=== PATIENT | male | born 1950 | race Caucasian/White ===

== ENCOUNTER 2017-11-30 09:04 | Day surgery (SDC) | payer MEDICARE, OTHER ==
[~2017-11-30] VITALS: Ht 162.6 cm; Wt 113.4 kg
[2017-11-30] MEDS ORDERED: NORVASC 10MG10 MG PO (09:32)
[2017-11-30] MEDS ORDERED: CIALIS5 MG PO (09:33)
[2017-11-30] MEDS ORDERED: LOTENSIN HCT 201 TA1 PO (09:33)
[2017-11-30] MEDS ORDERED: CELEXA 20MG20 MG/TAB PO (09:34)
[2017-11-30] MEDS ORDERED: VALIUM 2MG T2 MG/TAB PO (09:34)
[2017-11-30] MEDS ORDERED: PROSCAR 5MG5 MG PO (09:35)
[2017-11-30] MEDS ORDERED: NORCO 325 MG-51 TAB PO (09:36)
[2017-11-30] MEDS ORDERED: MOBIC15 MG PO (09:36)
[2017-11-30] MEDS ORDERED: TOPROL XL 25MG25 MG PO (09:39)
[2017-11-30] MEDS ORDERED: ANTIVERT 25MG25 MG PO (09:39)
[2017-11-30] MEDS ORDERED: NATURAL POTASS595 MG (09:40)
[2017-11-30] MEDS ORDERED: ASPIRIN 32325 MG/TAB PO (09:40)
[2017-11-30 09:41] VITALS: BP 119/75; PULSE 55; TEMP 98
[2017-11-30 11:55] VITALS: BP 110/66; PULSE 56
[2017-11-30 12:10] VITALS: BP 111/72; PULSE 55
[2017-11-30 12:25] VITALS: BP 118/63; PULSE 51
[2017-11-30 12:40] VITALS: BP 123/76; PULSE 54
== END 2017-11-30 12:52 | disposition home or self-care (01) ==
LOC: SDCO 09:04
DX: Z12.11 Encounter for screening for malignant neoplasm of colon (principal); C19 Malignant neoplasm of rectosigmoid junction; D12.4 Benign neoplasm of descending colon; K64.0 First degree hemorrhoids
CPT/HCPCS: OP; J2704; J7120

== ENCOUNTER → 2017-12-08 | Outpatient (CLI) | payer MEDICARE, OTHER ==
[~2017-12-08] MED LIST: ANTIVERT 25MG25 MG PO; ASPIRIN 32325 MG/TAB PO; CELEXA 20MG20 MG/TAB PO; CIALIS5 MG PO; LOTENSIN HCT 201 TA1 PO; MOBIC15 MG PO; NATURAL POTASS595 MG; NORCO 325 MG-51 TAB PO; NORVASC 10MG10 MG PO; PROSCAR 5MG5 MG PO; TOPROL XL 25MG25 MG PO; VALIUM 2MG T2 MG/TAB PO
== END ==
LOC: COL.RAD 10:41
DX: K63.89 Other specified diseases of intestine (principal)
CPT/HCPCS: Q9967

== ENCOUNTER 2017-12-17 08:50 | Inpatient (IN) | payer MEDICARE, OTHER ==
[~2017-12-17] VITALS: Ht 165.1 cm; Wt 114.2 kg
[2018-01-05] VITALS (12 sets, daily range): BP systolic 99–153; BP diastolic 40–77; PULSE 51–79; TEMP 97.6–98.2
[2018-01-05] MEDS ORDERED: TOPROL XL 50MG50 MG PO (06:26)
[2018-01-06 01:32] VITALS: BP 151/63; PULSE 72; TEMP 98.2
[2018-01-06 05:17] VITALS: BP 131/67; PULSE 74; TEMP 97.6
[2018-01-06 06:53] LABS: HEMATOCRIT 37.5 % (42.0-52.0)
[2018-01-06 06:59] LABS: HEMOGLOBIN 11.8 g/dl (13.5-18.0)
[2018-01-06 07:04] LABS: CALCIUM 8.3 mg/dL (8.4-10.2); CREATININE, serum 1.79 mg/dL (0.66-1.25); POTASSIUM 3.9 mmol/L (3.4-5.0)
[2018-01-06 11:01] VITALS: BP 114/70; PULSE 73; TEMP 98.1
[2018-01-06 13:46] VITALS: BP 110/55; PULSE 72; TEMP 98.1
[2018-01-06 17:36] VITALS: BP 120/70; PULSE 65; TEMP 97.6
[2018-01-06 21:57] VITALS: BP 138/73; PULSE 71; TEMP 98.3
[2018-01-07 05:11] VITALS: BP 144/75; PULSE 62; TEMP 97.9
[2018-01-07 06:40] LABS: CREATININE, serum 1.36 mg/dL (0.66-1.25)
[2018-01-07 09:43] VITALS: BP 123/69; PULSE 60; TEMP 98.3
[2018-01-07 13:36] VITALS: BP 104/81; PULSE 62; TEMP 97.7
== END 2018-01-07 14:15 | disposition home or self-care (01) | DRG 330 ==
LOC: INPTSU 01-05 05:19 → SURG 01-05 05:19
PROVIDERS: Surgery
PROC: 0DTN4ZZ Resection of Sigmoid Colon, Percutaneous Endoscopic Approach (ICD-10-PCS; principal; 2018-01-05 07:30)
PROC: 8E0W4CZ Robotic Assisted Procedure of Trunk Region, Percutaneous Endoscopic Approach (ICD-10-PCS; 2018-01-05 07:30)
DX: C18.7 Malignant neoplasm of sigmoid colon (principal); K62.5 Hemorrhage of anus and rectum; Z68.41 Body mass index [BMI] 40.0-44.9, adult; I10 Essential (primary) hypertension; E66.01 Morbid (severe) obesity due to excess calories
CPT/HCPCS: A4314; J0690; J1100; J1650; J1885; J2405; J2704; J3010; J7120

== ENCOUNTER 2024-05-31 15:23 | Inpatient (IN) | payer MEDICARE, OTHER ==
[~2024-05-31] VITALS: Ht 167.6 cm; Wt 104.7 kg
[~2024-05-31 15:23] MED LIST changes: +TOPROL XL 50MG50 MG PO
[2024-06-12] VITALS (13 sets, daily range): BP systolic 96–156; BP diastolic 62–84; PULSE 54–62; TEMP 96.8–97.8
[2024-06-12] MEDS ORDERED: Meclizine 25 MG TAB PO SCH (05:00)
[2024-06-12] MEDS ORDERED: LR 1,000 ML IV SCH (05:00)
[2024-06-12] MEDS ORDERED: NS 10 ML IV ONE (09:30)
[2024-06-12] MEDS ORDERED: Lidocaine PF 2% (20 MG/ML) 5 ML VIAL ONE (09:30)
[2024-06-12] MEDS ORDERED: fentaNYL 50 MCG/ML 2 ML VIAL ONE ×2 (09:30→16:33)
[2024-06-12] MEDS ORDERED: Midazolam 2 MG/2 ML VIAL ONE (09:30)
[2024-06-12] MEDS ORDERED: dexAMETHasone 10 MG/ML VIAL ONE (09:30)
[2024-06-12] MEDS ORDERED: Tranexamic Acid 1,000 MG/10 ML VIAL ONE (09:33)
[2024-06-12] MEDS ORDERED: NORVASC 5MG5 MG/TAB PO (11:27)
[2024-06-12] MEDS ORDERED: HCTZ 25MG TAB25 MG PO (11:31)
[2024-06-12] MEDS ORDERED: ZYLOPRIM 300MG300 MG PO (11:31)
[2024-06-12] MEDS ORDERED: TOPROL XL100 MG PO (11:32)
[2024-06-12] MEDS ORDERED: CELEBREX 200MG200 MG PO (11:32)
[2024-06-12] MEDS ORDERED: BENICAR40 MG PO (11:33)
[2024-06-12] MEDS ORDERED: PRILOTC PO (11:33)
[2024-06-12] MEDS ORDERED: Sennosides/Docusate 8.6-50 MG TAB PO SCH ×2 (11:48→21:00)
[2024-06-12] MEDS ORDERED: Magnes Hydrox (MOM) 80 MG/ML 30 ML CUP PO SCH (11:49)
[2024-06-12] MEDS ORDERED: Ascorbic Acid 500 MG TAB PO SCH (11:49)
[2024-06-12] MEDS ORDERED: Rivaroxaban 10 MG TAB PO SCH (11:50)
[2024-06-12] MEDS ORDERED: NS 1,000 ML IV SCH (12:00)
[2024-06-12] MEDS ORDERED: Morphine 4 MG/ML VIAL IV PRN (12:00)
[2024-06-12] MEDS ORDERED: Mag/Al Hydrox/Simeth Susp 30 ML CUP PO PRN (12:00)
[2024-06-12] MEDS ORDERED: Acetaminophen 500 MG TAB PO PRN (12:00)
[2024-06-12] MEDS ORDERED: Acetaminophen 500 MG TAB PO SCH (12:00)
[2024-06-12] MEDS ORDERED: oxyCODONE 5 MG TAB PO PRN (12:00)
[2024-06-12] MEDS ORDERED: Bisacodyl 5 MG TAB PO PRN (12:00)
[2024-06-12] MEDS ORDERED: Naloxone 0.4 MG/ML VIAL IV PRN (12:00)
[2024-06-12] MEDS ORDERED: Ketorolac 15 MG/ML VIAL IV SCH (12:00)
[2024-06-12] MEDS ORDERED: Ondansetron 4 MG/2 ML VIAL IV PRN ×2 (12:00→13:30)
[2024-06-12] MEDS ORDERED: Magnes Hydrox (MOM) 80 MG/ML 30 ML CUP PO PRN (12:00)
[2024-06-12] MEDS ORDERED: Ketorolac 30 MG/ML VIAL IM ONE (12:42)
[2024-06-12] MEDS ORDERED: Morphine 4 MG/ML VIAL IM ONE (12:42)
[2024-06-12] MEDS ORDERED: fentaNYL 50 MCG/ML 1 ML SYRINGE/VIAL [PACU/SDC ONLY] IV PRN (13:30)
[2024-06-12] MEDS ORDERED: Morphine 2 MG/1 ML VIAL [PACU/SDC ONLY] IV PRN (13:30)
[2024-06-12] MEDS ORDERED: Meperidine 50 MG/ML 1 ML VIAL IV PRN (13:30)
[2024-06-12] MEDS ORDERED: HYDROmorphone 1 MG/1 ML SYRINGE [PACU/SDC ONLY] IV PRN (13:30)
[2024-06-12] MEDS ORDERED: LR 1,000 ML IV ONE (13:56)
--- NOTE | 2024-06-12 18:30 | NUR ---
pt admitted to room from pacu. pt a&ox4. pt denies pain. dressings to ble are cdi. hemovacs in place. scrotal support applied from prior injury at home before surgery. pt reports having episodes of dizziness at home that his doctor is aware of. pain to left shoulder, ice pack in place. fluids infusing into right hand IV. oriented to room. call light in reach. fall precautions in place. pt tolerating ice chips. no other needs at this time.
[2024-06-12] MEDS ORDERED: ceFAZolin 2 G in Water For Injection,Sterile 20 ML IV SCH (21:30)
[2024-06-13] VITALS (15 sets, daily range): BP systolic 93–122; BP diastolic 54–70; PULSE 57–67; TEMP 97.8–98.6
--- NOTE | 2024-06-13 02:53 | NUR ---
PT ASSISTED TO AMBULATE TO COUCH IN ROOM. UP WITH WALKER, 2 PERSON ASSIST AND GAIT BELT. ONCE STANDING, PT WALKED WELL WITH NO C/O PAIN. ONLY STATES KNEES FEEL "STIFF".
--- NOTE | 2024-06-13 03:48 | NUR ---
PT HAS NOT VOIDED SINCE SURGERY, DOES NOT FEEL URGE TO VOID AT THIS TIME, BUT HAS TRIED WITH URINAL WELL SITTING ON TOILET. BLADDER SCANNED AND SHOWED 50 ML, THIS RN USED SECOND SCANNER TO VERIFY AND SHOWED 60 AND 72ML AT MOST. CALL TO KAYODE DEAN, ORDER RECEIVED FOR 500 ML NS BOLUS X ONE.
[2024-06-13] MEDS ORDERED: NS 500 ML IV ONE (04:00)
[2024-06-13 07:27] LABS: MEAN CELL VOLUME 100 fl (80.0-100.0); MEAN CORPUSCULAR HGB CONC 33 g/dl (33.0-37.0); PLATELET COUNT 106 K/mm3 (130-400); RED BLOOD COUNT 2.92 M/mm3 (4.20-5.60); REDCELL DISTRIBUTION WIDTH-CV 14.3 % (11.5-14.5)
[2024-06-13 07:28] LABS: HEMATOCRIT 29.2 % (42.0-52.0); HEMOGLOBIN 9.6 g/dl (13.5-18.0); MEAN CORPUSCULAR HEMOGLOBIN 33 pg (27-31)
[2024-06-13 07:29] LABS: CALCIUM 7.8 mg/dL (8.4-10.2); CREATININE, serum 1.82 mg/dL (0.72-1.25); POTASSIUM 4.8 mEq/L (3.5-4.5)
[2024-06-13 07:58] LABS: MAGNESIUM 1.7 mg/dL (1.6-2.6)
--- NOTE | 2024-06-13 08:05 | NUR ---
pt awake resting in bed, pt reports being awake all night because he thought it was day time. pt oriented to person, place, and time. vss. dressings to ble are cdi. scds to ble. hemovacs in place with moderate bloody output. fluids infusing into right hand. x1 assist with walker to bathroom, steady gait. pt able to urinate after reporting not urinating all night. pt denies needs at this time. call light in reach. fall precautions in place.
[2024-06-13] MEDS ORDERED: Polyethylene Glycol 3350 17 GM PDS PO SCH (09:00)
[2024-06-13] MEDS ORDERED: Citalopram 20 MG TAB PO SCH (09:00)
[2024-06-13] MEDS ORDERED: Losartan 50 MG TAB PO SCH (09:00)
[2024-06-13] MEDS ORDERED: Allopurinol 300 MG TAB PO SCH (09:00)
[2024-06-13] MEDS ORDERED: amLODIPine 5 MG TAB PO SCH (09:00)
[2024-06-13] MEDS ORDERED: Finasteride 5 MG TAB PO SCH (09:00)
[2024-06-13] MEDS ORDERED: Olmesartan 40 MG **** subs to Losartan 100 MG PO SCH (09:00)
--- NOTE | 2024-06-13 09:30 | NUR ---
therapy reported to this nurse that hemovac fell out. assessed pt and tubing from inside the knee was still attached. order to remove hemovac's, met resistance. JADA Rincon assisted with removing rest of hemovac in right knee. left knee hemovac still in place. pt tolerated well. family at bedside. therapy still in working with patient as well.
--- NOTE | 2024-06-13 12:42 | NUR ---
D: 1[employer] Grade Teacher stopped by room on rounds. A: Pt was resting and content with and daughter in the room. Pt is from [place]. Pt has no needs right now. P: 1[employer] Grade Teacher informed pt that if he needed anything from the chef teacher area to let his nurse know. [employer] Grade Teacher will follow up as needed.
--- NOTE | 2024-06-13 14:49 | NUR ---
belt worker met with patient, patient's (Shanon) P# [phone], patient's daughter (Kim) P# [phone] and another family member to discuss discharge planning. Patient lives in [place] with his , Shanon. Patient's PCP is Dr. Lane, Pharmacy is [facility], no issues affording medications. Insurance is Medicare A and B, [employer] Supplemental which the stated it may be called Aepam now. DPOA-HC is Shanon and Kim which they are going to bring a copy to the nurse's station later today. DME is a cane. Patient stated prior to hospitalization he was independent with ADLS and was able to transport himself to and from appointments. Patient and his family expressed they were informed they had been approved for [facility]. LEVY explained she would fax the referral over to confirm that patient is officially accepted. LEVY faxed referral to [facility]. LEVY contacted Tiffanie over at [facility] regarding referral. Tiffanie expressed she has not seen it yet but she would follow up with sr. social media & mobile manager once she receives it. Tiffanie explained patient had been discussing going there after surgery but they would need to review first. Discharge plan:[facility] - pending acceptance
--- NOTE | 2024-06-13 17:17 | NUR ---
PCT reported to this nurse that patients left hemovac fell out when ambulating out of bathroom. new dressing applied. pt denies pain.
[2024-06-13] MEDS ORDERED: Cephalexin 500 MG CAP PO SCH (18:00)
--- NOTE | 2024-06-13 22:49 | NUR ---
Patient assessed around 2044. Alert and oriented, and able to make needs known. Reported level 6 pain to bilateral knees, but denies wanting PRN medications at this time. Peripheral INT to right hand. Denies SOB and dyspnea. LS CTA. HRR. BSAx4. Declined scheduled Senokot tonight. 1+ edema BLE. Dressings to bilateral knees are CDI. Assisted to bathroom with one assist with use of gait belt and walker. Assisted to recliner as requested. Voices no further questions, needs, or concerns at this time. Call light with in reach. Chair alarm on.
[2024-06-14] VITALS (13 sets, daily range): BP systolic 99–134; BP diastolic 53–73; PULSE 75–95; TEMP 97.6–98.5
--- NOTE | 2024-06-14 00:19 | NUR ---
Dressing changed to right knee. Large amount of bloody drainage. Cleansed, new dressing applied and wrapped with MARSHAL. Patient ambulated to bathroom and in [place] for short distance, and assisted back to recliner as requested. Chair alarm in place. Call light within reach.
--- NOTE | 2024-06-14 06:08 | NUR ---
Around 0100, patient got confused, saw racoons in room. Patient was seeing lights reflecting off of TV that looked like eyes. Lights turned on which helped. No further hallucinations this shift. Patient did have loose stools x 2. Received scheduled Acetaminophen. Declined wanting PRN pain medication. Voices no further questions, needs, or concerns at this time.
--- NOTE | 2024-06-14 08:00 | NUR ---
SHIFT ASSESSMENT COMPLETE. VSS. PATIENT SITTING ON THE SIDE OF THE BED DOING LEG EXERCISES. PATIENT REFUSING BREAKFAST AT THIS TIME. PATIENT REPORTS PAIN IN BILAT. KNEES 7/10 PAIN MEDS GIVEN PER ORDERS. ALL MORNING MEDS GIVEN ORDERED. PATIENT HAS NO OTHER NEEDS AT THIS TIME. CALL LIGHT IN REACH
[2024-06-14 11:46] LABS: HEMATOCRIT 27.6 % (42.0-52.0); HEMOGLOBIN 8.9 g/dl (13.5-18.0)
[2024-06-14 12:00] LABS: CALCIUM 7.6 mg/dL (8.4-10.2); CREATININE, serum 1.7 mg/dL (0.72-1.25); POTASSIUM 3.9 mEq/L (3.5-4.5)
--- NOTE | 2024-06-14 14:16 | NUR ---
DRESSING CHANGE COMPLETE BILATERALLY. ABD AND MARSHAL WRAP OVER INCISIONS. EDGES WELL APPROXIMATED AND VANESSA INTACT.
--- NOTE | 2024-06-14 17:01 | NUR ---
assembly line worker was notified by [facility] that patient is too functional for swing bed. LEVY met with patient, his and his daughter to discuss discharge plan. LEVY explained swing bed stated he is too functional for their unit but he could get outpatient pt or home health. SW provided the medicare.gov list of home health options. Patient and family members expressed they would like patient to go to outpatient PT at the [facility]. LEVY explained she would send the referral to the [facility] for outpatient services. LEVY explained if patient returned home and his progress decreased he would qualify for rehab at a SNF or SB for 30 days after discharge from the hospital. Patient and family understand and would like to return home with outpatient PT. Discharge plan: Home with outpatient PT
--- NOTE | 2024-06-14 23:03 | NUR ---
patient in recliner, alert and oriented x4. denies chest pain and shortness of breath. IV in RF is patent, site CDI. pt ambulate x1 assist with gait belt and walker to bed. knees feeling "stiff" per patient, range of motion exercises performed, SCDs in place. bilateral knees with gauze and edi wrap dressings, CDI. fall precautions in place, call light within reach. pt has no further needs, questions or concerns at this time
[2024-06-15] VITALS (8 sets, daily range): BP systolic 132–146; BP diastolic 65–84; PULSE 79–93; TEMP 98–99.1
--- NOTE | 2024-06-15 09:55 | NUR ---
PATIENT ALERT AND ORIENTED X4. VSS. PATIENT HERE FOR BILAT KNEE. ABD/MARSHAL WRAP DRESSING CHANGED TO BOTH KNEES. IV TO RIGHT FA INT AND FLUSHES WELL. PATIENT REPORTS MILD PAIN, DENIES NEED FOR PAIN MEDICATION. PATIENT EATING BREAKFAST. NO FURTHER NEEDS. CALL LIGHT IN REACH. CHAIR ALARM ON.
--- NOTE | 2024-06-15 14:37 | NUR ---
ball worker attended interdisciplinary clinical rounding with Dr. Hogue. Patient is medically ready for discharge. LEVY Carrasquillo met with patient and reviewed the important message from Medicare. Patient signed form. LEVY made copy, placed original in chart and provided copy to patient. LEVY faxed referral to [facility] for outpatient PT, pending orders. Discharge plan: Home with OP PT- [facility]
[2024-06-15] MEDS ORDERED: CEPHALEXIN500 M1 PO (15:22)
[2024-06-15] MEDS ORDERED: NORCO 325 MG-51 TAB PO (15:23)
[2024-06-15] MEDS ORDERED: ULTRAM 50MG TAB50 MG PO (15:23)
[2024-06-15] MEDS ORDERED: XARELTO10 MG PO (15:24)
--- NOTE | 2024-06-15 16:35 | NUR ---
child welfare social worker reviewed discharge orders which states home health. LEVY was notified patient is leaving. LEVY left a voicemail at Dr. Davila's office for corrected orders to send to [facility]. LEVY notified [facility] that patient's orders were incorrect and they have requested updated orders for the outpatient pt. [facility] has him scheduled for the first appointment tomorrow at 8 am.
--- NOTE | 2024-06-15 16:37 | NUR ---
DISCHARGE INSTRUCTIONS PROVIDED. PATIENT EDUCATION GIVEN ON DIAGNOSIS. IV DC'D. DRESSING CHANGED AND SUPPLIES GIVEN TO FAMILY PER ORDERS. MEDICATIONS REVIEWED. FOLLOW UP APPOINTMENTS DISCUSSED. PATIENT AND FAMILY DENY ANY QUESTIONS OR CONCERNS. PATIENT ESCORTED OUT VIA WHEELCHAIR.
[2024-06-16] MEDS ORDERED: Celecoxib 200 MG CAP PO SCH (21:00)
== END 2024-06-15 16:38 | disposition home or self-care (01) | DRG 462 ==
LOC: INPTSU 06-12 10:22 → SURG 06-12 10:22 → EDSTATUS 06-12 10:30 → SDCO 06-12 10:30 → SURG 06-12 18:31
PROVIDERS: Internal Medicine; Physician Assistant; ADMIT Orthopaedic Surgery
PROC: 0SRC0J9 Replacement of Right Knee Joint with Synthetic Substitute, Cemented, Open Approach (ICD-10-PCS; 2024-06-12)
PROC: 0SRD0J9 Replacement of Left Knee Joint with Synthetic Substitute, Cemented, Open Approach (ICD-10-PCS; principal; 2024-06-12 10:30)
DX: M17.0 Bilateral primary osteoarthritis of knee (principal); N17.9 Acute kidney failure, unspecified; M10.9 Gout, unspecified; F32.A Depression, unspecified; M24.562 Contracture, left knee; M24.561 Contracture, right knee; I10 Essential (primary) hypertension; N40.0 Benign prostatic hyperplasia without lower urinary tract symptoms; Z79.899 Other long term (current) drug therapy
CPT/HCPCS: A4314; A9284; C1713; C1776; J0665; J0688; J0690; J1100; J1580; J1885; J2250; J2270; J2704; J2795; J3010; J7030; J7040; J7120